=== PATIENT | female | born 1980 | race Caucasian/White ===

== ENCOUNTER 2019-03-17 07:02 | Emergency (ER) | payer SELFPAY ==
[~2019-03-17] VITALS: Ht 162.6 cm; Wt 72.6 kg
[2019-03-17 07:10] VITALS: BP_SYST 120
[2019-03-17 08:15] LABS: BILIRUBIN,URINE NEGATIVE (NEGATIVE); BLOOD, URINE NEGATIVE (NEGATIVE); CLARITY/URINE CLEAR (CLEAR); COLOR,URINE YELLOW (YELLOW); GLUCOSE,URINE NEGATIVE (NEGATIVE); KETONES,URINE NEGATIVE (NEGATIVE); LEUKOCYTE ESTERASE ,URINE NEGATIVE (NEGATIVE); NITRITE, URINE NEGATIVE (NEGATIVE); PROTEIN URINE NEGATIVE (NEGATIVE); UROBILINOGEN,URINE 0.2 (0.2-1.0)
[2019-03-17 08:15] LABS: BASOPHILS # (AUTO) 0.1 K/uL (0.0-0.2); BASOPHILS % (AUTO) 0.9 % (0.0-2.0); EOSINOPHILS # (AUTO) 0.5 K/uL (0.0-0.4); EOSINOPHILS % (AUTO) 6.6 % (0.0-4.0); HEMATOCRIT 38.6 % (36-48); LYMPHOCYTES # (AUTO) 2.2 K/uL (1.0-5.5); LYMPHOCYTES % (AUTO) 29.1 % (20.5-51.5); MEAN CORPUSCULAR HEMOGLOBIN 29 pg (27-31); MEAN CORPUSCULAR HGB CONC 34 % (32-36); MEAN CORPUSCULAR VOLUME 86 fL (79.0-98.0); MONOCYTES # (AUTO) 0.7 K/uL (0.0-1.0); MONOCYTES % (AUTO) 9.1 % (1.7-9.3); NEUTROPHILS # (AUTO) 4.1 K/uL (1.8-7.7); NEUTROPHILS % (AUTO) 54.3 % (40.0-70.0); PLATELET COUNT (AUTO) 214 K/uL (130-430); RED CELL DISTRIBUTION WIDTH 14.4 % (9.0-15.0); WHITE BLOOD COUNT (AUTO) 7.5 K/uL (4.8-10.8)
[2019-03-17 08:32] LABS: PROTHROMBIN TIME 9.8 SECS (9.5-12.5)
[2019-03-17 09:00] LABS: CALCIUM 8.8 mg/dL (8.4-11.0); CREATININE 0.81 mg/dL (0.55-1.30); POTASSIUM 3.6 mmol/L (3.5-5.1)
[2019-03-17 09:15] LABS: ALBUMIN 3.7 g/dL (3.4-4.8); FREE T4 (FREE THYROXINE) 0.8 ng/dL (0.6-1.6); THYROID STIMULATING HORMONE 2.11 uIu/mL (0.34-4.82); TOTAL BILIRUBIN 0.3 mg/dL (0.0-1.0)
[2019-03-17 11:06] VITALS: BP_SYST 125
== END 2019-03-17 11:04 | disposition home or self-care (01) ==
LOC: SED 07:02
DX: E07.89 Other specified disorders of thyroid (principal)
CPT/HCPCS: 36415; 71045; 76536-TC; 80053; 81003; 84439; 84443-TC; 85025; 85610-TC; 99284

== ENCOUNTER 2019-08-18 06:41 | Emergency (ER) | payer OTHER, MEDICAID ==
[~2019-08-18] VITALS: Ht 162.6 cm; Wt 73.5 kg
[2019-08-18 07:23] VITALS: BP_SYST 124
--- NOTE | 2019-08-18 07:30 | NUR ---
Patient to ER bed 7 to gown for evaluation. Side rails up. Assumed care from YOLANDA Encinas.
[2019-08-18] MEDS ORDERED: ACETAMINOPHEN 500 MG TABLET PO ONE (08:00)
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
--- NOTE | 2019-08-18 08:02 | NUR ---
ER at bedside examining patient.
--- NOTE | 2019-08-18 08:06 | NUR ---
Patient taken to XR via wheelchair, accompanied by radiology staff.
[2019-08-18 09:29] VITALS: BP_SYST 122
--- NOTE | 2019-08-18 09:29 | NUR ---
Patient given written and verbal discharge instructions and verbalizes understanding. ER MD discussed with patient the results and treatment provided. Patient in stable condition. ID arm band removed. Rx of Tylenol given. Patient educated on pain management and to follow up with [facility]D. Pain Scale 5/10, MD aware. Opportunity for questions provided and answered. Medication side effect fact sheet provided.
--- NOTE | 2019-08-18 09:37 | NUR ---
Dr. Cortés made aware patient would like to discuss results of XR prior to leaving.
--- NOTE | 2019-08-18 09:41 | NUR ---
MD Cortés at bedside speaking with patient.
== END 2019-08-18 09:29 | disposition home or self-care (01) ==
LOC: SED 06:41
DX: M79.18 Myalgia, other site (principal); V49.9XXA Car occupant (driver) (passenger) injured in unspecified traffic accident, initial encounter; Y93.89 Activity, other specified; Y92.413 State road as the place of occurrence of the external cause; Y99.8 Other external cause status
CPT/HCPCS: 71046-TC; 81025; 99283